=== PATIENT | male | born 1955 | race Caucasian/White ===

== ENCOUNTER 2016-12-31 22:48 | Inpatient (IN) | payer OTHER ==
[~2016-12-31] VITALS: Ht 172.7 cm; Wt 81.6 kg
[2016-12-31 22:53] VITALS: BP 157/87
--- NOTE | 2016-12-31 23:00 | NUR ---
Patient to bed 07.
--- NOTE | 2016-12-31 23:03 | NUR ---
DR. ANTHONY AT BEDSIDE EVALUATING PT.
--- NOTE | 2016-12-31 23:10 | NUR ---
LAB AT BEDSIDE.
[2016-12-31] MEDS ORDERED: MORPHINE SULFATE 2 MG/ML SYR IVP ONE (23:35)
[2016-12-31] MEDS ORDERED: ONDANSETRON 4 MG/2 ML VIAL IVP ONE (23:35)
--- NOTE | 2016-12-31 23:57 | NUR ---
PT TAKEN TO X-RAY.
[2017-01-01] VITALS (7 sets, daily range): BP systolic 109–151; BP diastolic 62–102
--- NOTE | 2017-01-01 00:21 | NUR ---
Patient back from XRAY via wheelchair per tech.
--- NOTE | 2017-01-01 00:32 | NUR ---
DR. ANTHONY NOTIFIED OF PT'S VITAL SIGNS. BP 175/110. PAIN SCALE 10/10, CHEST.
--- NOTE | 2017-01-01 00:38 | NUR ---
DR. ANTHONY REEVALUATING PT AT BEDSIDE.
[2017-01-01] MEDS ORDERED: HYDROmorphone 1 MG/ML AMP IVP ONE ×2 (00:40→01:25)
[2017-01-01] MEDS ORDERED: DILTIAZEM 25 MG/5 ML VIAL IVP ONE (00:45)
[2017-01-01] MEDS ORDERED: ONDANSETRON 4 MG ODT PO ONE (00:45)
[2017-01-01] MEDS ORDERED: NORVASC10 M1 PO (01:02)
[2017-01-01] MEDS ORDERED: ZESTORETIC 12.51 TA2 PO (01:02)
--- NOTE | 2017-01-01 01:05 | NUR ---
DR. ANTHONY AWARE OF PT'S BP. 154/91. DR. ANTHONY SAID TO HOLD OFF CARDIZEM AT THIS TIME. WILL CONTINUE TO MONITOR.
--- NOTE | 2017-01-01 01:12 | NUR ---
PT SIGNED CONSENT FOR CT ABDOMEN/PELVIS WITH CONTRAST.
--- NOTE | 2017-01-01 01:34 | NUR ---
Patient going to CT via wheelchair per tech.
--- NOTE | 2017-01-01 01:50 | NUR ---
Patient back from CT via wheelchair per tech.
--- NOTE | 2017-01-01 02:41 | NUR ---
DR. ANTHONY AT BEDSIDE REEVALUATING PATIENT.
[2017-01-01] MEDS ORDERED: ONDANSETRON 4 MG/2 ML VIAL IVP PRN (02:55)
[2017-01-01] MEDS ORDERED: ACETAMINOPHEN 325 MG TAB PO PRN (02:55)
[2017-01-01] MEDS ORDERED: MORPHINE SULFATE 2 MG/ML SYR IVP PRN (02:55)
[2017-01-01] MEDS ORDERED: HYDROcodone/APAP 7.5/325 MG 1 TAB PO PRN (02:55)
[2017-01-01] MEDS ORDERED: NITROGLYCERIN 0.4 MG TAB SL PRN (02:55)
--- NOTE | 2017-01-01 03:10 | NUR ---
Patient will be admitted to care of DR. JACOBSON. Admited to TELEMETRY UNIT. Belongings list completed. Report GIVEN TO BERNADINE LOPEZ.
--- NOTE | 2017-01-01 03:15 | NUR ---
DR. ANTHONY AWARE PT HAS NOT GIVEN URINE SPECIMEN YET. ENDORSED TO BERNADINE LOPEZ.
--- NOTE | 2017-01-01 03:18 | NUR ---
PT TRANSFERRED TO FLOOR VIA GURNEY ACCOMPANIED BY RN AND EMT, ATTACHED TO TOOL DESIGN CHECKER, ON A GUARDED POSITION.
--- NOTE | 2017-01-01 03:20 | NUR ---
RECEIVED PATIENT FROM ER VIA GURNEY, REPORT GIVEN BY JAREN COLINDRES. AWAKE, ALERT, ORIENTED, FULL CODE. HOOKED TO DINING MANAGER, SINUS RHYTHM. WITH PERIPHERAL IV ON LEFT AC G20 INTACT. INITIAL ASSESSMENT AND HISTORY TAKEN. SKIN INTACT. PATIENT VERBALIZED 3/10 MILD CHEST PAIN, INFORMED OF PRN ORDER OF MORPHINE AND NORCO. PATIENT VERBALIZED NO NEED FOR MEDICATION AT THIS TIME. NO SIGNS OF RESPIRATORY DISTRESS OR DISCOMFORT AT THIS MOMENT. MRSA NARES SWAB SPECIMEN TAKEN AND URINE SPECIMEN COLLECTED AND SENT TO LAB.
--- NOTE | 2017-01-01 05:43 | NUR ---
SLEEPING COMFORTABLY, NO SIGNS OF DISTRESS OR DISCOMFORT AT THIS MOMENT. BED IN LOW POSITION. CALL LIGHT AT BEDSIDE. CLOSE MONITORING.
--- NOTE | 2017-01-01 06:30 | NUR ---
PATIENT BRUSHED HIS TEETH HIMSELF. HE SAID HE WILL WAIT UNTIL HE GETS TRANSFERRED TO THE TELEMETRY ROOM TO GET HIMSELF CLEANED UP AND SHOWER.
--- NOTE | 2017-01-01 07:25 | NUR ---
PATIENT REPORT ENDORSED TO CHANELL COLINDRES. PATIENT PUT ON TELE MONITOR, TRANSFERRED TO TELE WITH CHANELL COLINDRES PER WHEELCHAIR. PATIENT AMBULATES.
--- NOTE | 2017-01-01 07:30 | NUR ---
RECEIVED REPORT FROM BERNADINE LOPEZ. PT IS ON ROOM AIR. PT IS AAOX4. IV TO LEFT AC #20, PATENT AND INTACT. SKIN IS INTACT. SAFETY PRECAUTIONS IN PLACE WITH BED IN LOWEST POSITION AND SIDE RAILS UP X2. CALL LIGHT WITHIN REACH. WILL CONTINUE TO MONITOR.
--- NOTE | 2017-01-01 08:00 | NUR ---
PATIENT HAS BEEN SCREENED AND CATEGORIZED MODERATE NUTRITION RISK. PATIENT WILL BE SEEN WITHIN 3-5 DAYS OF ADMISSION. 01/03/17-01/05/[address]
[2017-01-01] MEDS: CARVEDILOL 3.125 MG TAB PO SCH ×2 (08:36→20:14)
[2017-01-01] MEDS: FAMOTIDINE 20 MG TAB PO SCH (08:36)
[2017-01-01] MEDS: DOCUSATE SODIUM 100 MG GELCAP PO SCH (08:37)
[2017-01-01] MEDS: amLODIPine 5 MG TAB PO SCH (08:37)
[2017-01-01] MEDS: LISINOPRIL 10 MG TAB PO SCH (08:37)
[2017-01-01] MEDS: ATORVASTATIN 20 MG TAB PO SCH (08:37)
--- NOTE | 2017-01-01 08:44 | NUR ---
PT C/O PAIN 8/10 TO CHEST AND ABDOMEN, ACHING AND WITH PRESSURE AND C/O NAUSEA. CHECKED BP: 151/88. ADMINISTERED MEDICATION ORDERED PRN. PT TOLERATED WELL. WILL REASSESS.
--- NOTE | 2017-01-01 08:47 | NUR ---
DR. SUTTON PRESENT AT BEDSIDE.
[2017-01-01] MEDS ORDERED: ASPIRIN 81 MG TAB.CHEW PO SCH (09:00)
--- NOTE | 2017-01-01 09:35 | NUR ---
PRESENT AT BEDSIDE.
--- NOTE | 2017-01-01 10:48 | NUR ---
DR. MAYS IN TO SEE PT. WILL FOLLOW UP ON ORDERS.
[2017-01-01] MEDS: NACL 0.9% 1,000 ML IV SCH ×2 (10:58→23:58)
[2017-01-01] MEDS: HYDROmorphone 1 MG/ML AMP IVP PRN ×3 (11:28→20:14)
--- NOTE | 2017-01-01 11:28 | NUR ---
PT C/O PAIN, 6/10 TO CHEST AND ABD. ACHING AND CONTINUOUS. CHECKED BP: 131/89. ADMINISTERED DILAUDID ORDERED. PT TOLERATED WELL. WILL REASSESS.
--- NOTE | 2017-01-01 12:01 | NUR ---
PT TO STRESS TEST.
--- NOTE | 2017-01-01 12:50 | NUR ---
DR. SARMIENTO IN TO SEE PT. WILL FOLLOW UP ON ORDERS.
--- NOTE | 2017-01-01 14:07 | NUR ---
CHECKED ON PT. RESTING AT THIS TIME, AROUSABLE. CALL LIGHT WITHIN REACH. WILL CONTINUE TO MONITOR.
--- NOTE | 2017-01-01 14:23 | NUR ---
FOLLOWED UP WITH RADIOLOGY REGARDING US GALLBLADDER. INFORMED THAT TECH IS CURRENTLY BUSY WITH OTHER PTS AND WILL COME AFTERWARDS.
--- NOTE | 2017-01-01 14:44 | NUR ---
AND SON PRESENT AT BEDSIDE.
--- NOTE | 2017-01-01 16:26 | NUR ---
CHECKED ON PT. ALL NEEDS MET AT THIS TIME. CALL LIGHT WITHIN REACH.
--- NOTE | 2017-01-01 17:23 | NUR ---
PT C/O PAIN TO CHEST, ACHING AND CONTINUOUS, 04/02. CHECKED BP: 137/84. ADMINISTERED DILAUDID ORDERED PRN. PT TOLERATED WELL. WILL REASSESS.
--- NOTE | 2017-01-01 18:10 | NUR ---
DR. CANTU IN TO SEE PT. WILL FOLLOW UP ON ORDERS.
--- NOTE | 2017-01-01 18:15 | NUR ---
BLOOD PICKED UP FROM LAB AND CHECKED AT BEDSIDE VIA 2 RNS. BASELINE VSS. STARTED BLOOD TRANSFUSION. NO REACTION NOTED AT THIS TIME. WILL CONTINUE TO MONITOR. Addendum: 01/01/17 at 1818 by Alma Delia Dang RN CHARTED ON WRONG PT.
--- NOTE | 2017-01-01 18:45 | NUR ---
CONSENT FOR SURGERY SIGNED AND PLACED IN PT'S CHART. ALL QUESTIONS ANSWERED.
--- NOTE | 2017-01-01 19:30 | NUR ---
ENDORSED CARE TO BERNADINE COLON. PT IN STABLE CONDITION.
--- NOTE | 2017-01-01 19:31 | NUR ---
RECEIVED PT FROM CHANELL COLINDRES PT IS AAOX4 AMBULATORY ON TELEMETRY SR, DENIES ANY PAIN AT THIS TIME, IV ON LEFT AC INFUSING WELL INITIAL ASSESSMENT DONE
--- NOTE | 2017-01-01 22:00 | NUR ---
PT SLEEPING WELL AFTER PAIN MEDIC GIVEN ,ON TELEMETRY SR NOT DISTRESS NOTED
--- NOTE | 2017-01-02 | NUR ---
PT HAS FEVER 101.0 TYLENOL GIVEN ORDER WILL BE MONITOING
[2017-01-02] MEDS: HYDROmorphone 1 MG/ML AMP IVP PRN ×7 (00:40→21:31)
--- NOTE | 2017-01-02 01:00 | NUR ---
TEMP 99.1
--- NOTE | 2017-01-02 03:05 | NUR ---
PT IS NPO AMBULATES TO THE RESTROOM DENIES ANY PAIN AT THIS TIME.
[2017-01-02 04:00] VITALS: BP 96/65
--- NOTE | 2017-01-02 05:33 | NUR ---
SPONGE BATH GIVEN , LINEN CHANGED PT CONSENT READY AND SURGICAL CHECK LIST READY. AND TICKET TO READY
--- NOTE | 2017-01-02 06:36 | NUR ---
PT RESTING ON BED ON TELEMETRY SR NOT DISTRESS NOTED
--- NOTE | 2017-01-02 07:00 | NUR ---
RECEIVED REPORT FROM NIGHT NURSE. PT IS AAOX4, SKIN INTACT, IV TO LEFT AC 20G. NO CHEST PAIN AT THIS TIME. INITIAL ASSESSMENT COMPLETED. REVIEWED PLAN OF CARE WITH PT, PT WILL BE GOING TO OR FOR LAP ANNABELLA, PT VERBALIZED UNDERSTANDING. CALL LIGHT WITHIN REACH.
--- NOTE | 2017-01-02 07:14 | NUR ---
PT LEFT UNIT TO OR IN STABLE CONDITION.
[2017-01-02] MEDS ORDERED: BUPIVACAINE-MPF/EPI 0.25% 30 ML VIAL INJ ONE (07:15)
[2017-01-02] MEDS ORDERED: THROMBIN KIT 20 MU VIAL TP ONE (07:16)
[2017-01-02] MEDS ORDERED: ceFAZolin 1,000 MG VIAL ONE (07:34)
[2017-01-02] MEDS ORDERED: DESFLURANE 240 ML BTL INH ONE (07:39)
[2017-01-02] MEDS ORDERED: SUCCINYLCHOLINE CHLORIDE 200 MG/10 ML VIAL IVP ONE (07:39)
[2017-01-02] MEDS ORDERED: CISATRACURIUM 20 MG/10 ML IV ONE ×2 (07:39→07:53)
[2017-01-02] MEDS ORDERED: DEXAMETHASONE 4 MG/ML VIAL ONE (07:39)
[2017-01-02] MEDS ORDERED: LIDOCAINE 2% 100 MG/5 ML SYR IVP ONE (07:39)
[2017-01-02] MEDS ORDERED: PROPOFOL 200 MG/20 ML VIAL IV ONE (07:39)
[2017-01-02] MEDS ORDERED: ePHEDrine 50 MG/ML VIAL ONE (07:39)
[2017-01-02] MEDS ORDERED: fentaNYL 0.05 MG/ML VIAL ONE (07:53)
[2017-01-02] MEDS ORDERED: ONDANSETRON 4 MG/2 ML VIAL IVP PRN (08:25)
[2017-01-02] MEDS: LISINOPRIL 10 MG TAB PO SCH (09:00)
[2017-01-02] MEDS: amLODIPine 5 MG TAB PO SCH (09:00)
[2017-01-02] MEDS: DOCUSATE SODIUM 100 MG GELCAP PO SCH (09:00)
[2017-01-02] MEDS: CARVEDILOL 3.125 MG TAB PO SCH ×2 (09:00→20:07)
[2017-01-02] MEDS ORDERED: PANTOPRAZOLE 40 MG INJ VIAL IVP SCH (09:00)
[2017-01-02] MEDS: ATORVASTATIN 20 MG TAB PO SCH (09:00)
[2017-01-02] MEDS: FAMOTIDINE 20 MG TAB PO SCH (09:00)
[2017-01-02] MEDS ORDERED: HYDROmorphone PFS 2 MG/ML SYR ONE (10:05)
[2017-01-02] MEDS ORDERED: PIPERACILLIN/TAZOBACTAM 3.375 GM VIAL IV ONE (10:33)
[2017-01-02] MEDS: DEXT 5% / NACL 0.45% 1,000 ML IV SCH ×2 (10:50→19:50)
--- NOTE | 2017-01-02 10:50 | NUR ---
PT RETURNED FROM OR S/P LAP ANNABELLA WITH 5 ABD INCISIONS JOSÉ LUIS . PT IS AAOX4, IV TO LEFT AC 20G INFUSING WELL. VS: TEMP 98.0, BP 111/70, HR 93, PULSE OX 93% ON O2 2L. ALL NEEDS MET. CALL LIGHT WITHIN REACH. WILL CONTINUE TO MONITOR.
--- NOTE | 2017-01-02 11:05 | NUR ---
S/P LAP ANNABELLA VS: TEMP 98.7, BP 112/66, HR 101, PULSE OX 93%.
--- NOTE | 2017-01-02 11:11 | NUR ---
VICK IN PLACE.
--- NOTE | 2017-01-02 11:20 | NUR ---
S/P LAP ANNABELLA VS: TEMP 97.6, BP 103/76, HR 101, PULSE OX 93%
--- NOTE | 2017-01-02 11:35 | NUR ---
S/P LAP ANNABELLA VS: TEMP 97.7, BP 113/70, HR 96, PULSE OX 93
--- NOTE | 2017-01-02 11:50 | NUR ---
PT CURRENTLY WALKING AROUND UNIT. NO S/S OF DISTRESS NOTED.
[2017-01-02 12:00] VITALS: BP 124/73
--- NOTE | 2017-01-02 12:05 | NUR ---
S/P LAP ANNABELLA VS: TEMP 97.6, BP 124/73, HR 96, PULSE OX 92.
[2017-01-02] MEDS: PIPER/TAZO 3.375GM/D5W PREMIX 50 ML IV SCH ×3 (12:20→23:33)
--- NOTE | 2017-01-02 12:25 | NUR ---
DUE MEDICATIONS GIVEN. PT CURRENTLY RESTING IN BED. NO S/S OF DISTRESS NOTED. ALL NEEDS MET. CALL LIGHT WITHIN REACH. WILL CONTINUE TO MONITOR.
--- NOTE | 2017-01-02 12:35 | NUR ---
S/P LAP ANNABELLA VS: TEMP 98.2, BP 123/76, HR 93, PULSE OX 94%. ALL NEEDS MET. CALL LIGHT WITHIN REACH. WILL CONTINUE TO MONITOR.
[2017-01-02] MEDS ORDERED: CHLORHEXADINE GLUC 2% CLOTH TP SCH (13:30)
[2017-01-02] MEDS: MUPIROCIN 2% OINT 22 GM TUBE TP SCH ×2 (13:41→20:08)
--- NOTE | 2017-01-02 14:23 | NUR ---
PT CURRENTLY SLEEPING. NO S/ OF DISTRESS NOTED. CALL LIGHT WITHIN REACH. WILL CONTINUE TO MONITOR.
[2017-01-02] MEDS ORDERED: SIMETHICONE 80 MG TAB.CHEW PO PRN (15:25)
[2017-01-02] MEDS: HYDROcodone/APAP 5/325 MG 1 TAB TAB PO PRN ×2 (15:29→20:07)
[2017-01-02 16:00] VITALS: BP 126/84
--- NOTE | 2017-01-02 16:05 | NUR ---
PT CURRENTLY RESTING IN BED. NO S/S OF DISTRESS NOTED. ALL NEEDS MET. CALL LIGHT WITHIN REACH. WILL CONTINUE TO MONITOR.
--- NOTE | 2017-01-02 19:25 | NUR ---
ENDORSED PLAN OF CARE TO NIGHT NURSE, PT IN STABLE CONDITION
--- NOTE | 2017-01-02 19:28 | NUR ---
RECEIVED PT IN STABLE CONDITION FROM BERNADINE MCNULTY. NO SOB, NO SIGNS OF DISTRESS. PT IS AOX4, AMBULATORY. IV TO LT AC 20G PATENT, ASYMPTOMATIC, INTACT, SALINE LOCKED. PT REFUSING FLUIDS AND SCDS. VS STABLE ON ROOM AIR. PT S/P LAP ANNABELLA TODAY WITH 5 INCISIONS TO ABDOMEN JOSÉ LUIS SEALED WITH GLUE, NO S/S INFECTION OR DRAINAGE NOTED. PT C/O ABD PAIN AND BURNING WITH URINATION SINCE NICANOR WAS DC, WILL MEDICATE FOR PAIN PER MD ORDER. PT TO BE NPO AFTER MIDNIGHT TONIGHT FOR EGD TOMORROW, PT VERBALIZED UNDERSTANDING. PLAN OF CARE DISCUSSED WITH PT. SAFETY MEASURES IN PLACE. CALL LIGHT WITHIN REACH. WILL CONTINUE TO MONITOR.
--- NOTE | 2017-01-02 20:08 | NUR ---
PT TOLERATED DUE MEDS AND PAIN MEDICATION WELL. NO SOB, NO SIGNS OF DISTRESS. IV SITE ASYMPTOMATIC, INTACT, SALINE LOCKED. SAFETY MEASURES IN PLACE. CALL LIGHT WITHIN REACH. WILL CONTINUE TO MONITOR.
--- NOTE | 2017-01-02 21:31 | NUR ---
PT C/O PAIN IN ABD AND PAIN WITH BURNING UPON URINATION. MEDICATED PT FOR PAIN PER MD ORDER. PT TOLERATED WELL. NO SOB, NO SIGNS OF DISTRESS. IV SITE ASYMPTOMATIC, INTACT, SALINE LOCKED. SAFETY MEASURES IN PLACE. CALL LIGHT WITHIN REACH. WILL CONTINUE TO MONITOR.
--- NOTE | 2017-01-02 22:38 | NUR ---
PT ASLEEP IN BED. NO SOB, NO SIGNS OF DISTRESS. IV SITE ASYMPTOMATIC, INTACT, SALINE LOCKED. SAFETY MEASURES IN PLACE. CALL LIGHT WITHIN REACH. WILL CONTINUE TO MONITOR.
--- NOTE | 2017-01-02 22:46 | NUR ---
CALL FROM MD CANTU REGARDING PT STATUS. GAVE MD REPORT ON PT STATUS.
[2017-01-03] VITALS: BP 116/71
--- NOTE | 2017-01-03 00:10 | NUR ---
VS STABLE. PT DENIES PAIN AT THIS TIME. NO SOB, NO SIGNS OF DISTRESS. IV SITE ASYMPTOMATIC, INTACT, PATENT, IVPB RUNNING. PLAN OF CARE DISCUSSED WITH PT. SAFETY MEASURES IN PLACE. CALL LIGHT WITHIN REACH. WILL CONTINUE TO MONITOR.
[2017-01-03] MEDS: HYDROcodone/APAP 5/325 MG 1 TAB TAB PO PRN ×3 (03:13→12:56)
--- NOTE | 2017-01-03 03:13 | NUR ---
PT C/O PAIN IN ABDOMEN AND BURNING WITH URINATION AFTER GETTING UP TO GO TO THE BATHROOM. PT REQUESTED NORCO, MEDICATED PT FOR PAIN PER MD ORDER. NO SOB, NO SIGNS OF DISTRESS. IV SITE ASYMPTOMATIC, INTACT, SALINE LOCKED. PLAN OF CARE DISCUSSED WITH PT. SAFETY MEASURES IN PLACE. CALL LIGHT WITHIN REACH. WILL CONTINUE TO MONITOR.
[2017-01-03] MEDS: PIPER/TAZO 3.375GM/D5W PREMIX 50 ML IV SCH (05:20)
--- NOTE | 2017-01-03 05:20 | NUR ---
STARTED ZOSYN IVPB. NO SOB, NO SIGNS OF DISTRESS. PT STATES HIS PAIN IS TOLERABLE AT THIS TIME. IV SITE ASYMPTOMATIC, INTACT, PATENT, IVPB RUNNING. PLAN OF CARE DISCUSSED WITH PT. SAFETY MEASURES IN PLACE. CALL LIGHT WITHIN REACH. WILL CONTINUE TO MONITOR.
[2017-01-03] MEDS: DEXT 5% / NACL 0.45% 1,000 ML IV SCH (05:50)
--- NOTE | 2017-01-03 07:27 | NUR ---
ENDORSED PT IN STABLE CONDITION TO BERNADINE WELLINGTON. ALL NEEDS HAVE BEEN MET AT THIS TIME.
[2017-01-03 08:00] VITALS: BP 120/79
[2017-01-03] MEDS ORDERED: NORCO 10/325 MG1 TAB PO (11:03)
[2017-01-03] MEDS ORDERED: BACTROBAN 2%20 MG/GM TP (11:04)
[2017-01-03] MEDS ORDERED: APLICARE ANTIS118 M2 TP (11:04)
[2017-01-03] MEDS ORDERED: fentaNYL 0.05 MG/ML VIAL ONE (11:18)
[2017-01-03] MEDS ORDERED: diphenhydrAMINE 50 MG/ML VIAL ONE (11:18)
[2017-01-03] MEDS ORDERED: MIDAZOLAM 2 MG/2 ML VIAL ONE (11:18)
--- NOTE | 2017-01-03 11:35 | NUR ---
PT WAS BROUGHT TO ER. TICKET TO RIDE IN THE CHART. PT WAS ALERT ORIENTED. X4. Addendum: 01/03/17 at 1626 by Ma. Jodie Arvizu RN AMMEND:PT WAS BROUGHT TO OR FOR EGD
--- NOTE | 2017-01-03 12:00 | NUR ---
RECEIVED PT BACK FROM THE OR. PT IS ALERT AND ORIENTED. GIVEN ICE CHIPS AND GELLO. GIVEN LUNCH TRAY CARDIAC TRAY REFUSED FOR ANY MEDICATION TO BE GIVEN AT THIS TIEM. REFUSED ZOSYN IV ATB.VERBAL MD ORDERED THAT PT MAY DC PT. DR PAINTER TO PLACE ORDER INTHE CHART.
[2017-01-03] MEDS ORDERED: PANTOPRAZOLE 40 MG INJ VIAL IVP SCH (12:33)
[2017-01-03 13:20] VITALS: BP 128/68
--- NOTE | 2017-01-03 13:30 | NUR ---
REMOVED IV INTACT APPLIED PRESSURE. GIVEN DISCHARGE INSTRUCTIONS,PAGED SEVERAL TIMES, NO REPLY. PT WANTED TO LEAVE, AT THE BEDSIDE. GIVEN PRESCRIPTION MADE COPY PLACE IN THE CHART.
--- NOTE | 2017-01-03 14:45 | NUR ---
WHEELED PATIENT OUT WITH THE FAMILY. GIVEN PRESCRIPTION.
[2017-01-03] MEDS ORDERED: MIDAZOLAM 2 MG/2 ML VIAL IVP ONE (15:05)
[2017-01-03] MEDS ORDERED: fentaNYL 0.05 MG/ML VIAL IVP ONE (15:05)
== END 2017-01-03 15:00 | disposition home or self-care (01) | DRG 417 ==
LOC: MED 22:48 → MIC 01-01 02:58 → MTU 01-01 07:10
PROVIDERS: ADMIT Student in an Organized Health Care Education/Training Program; ATTEND Student in an Organized Health Care Education/Training Program
PROC: 0FT44ZZ Resection of Gallbladder, Percutaneous Endoscopic Approach (ICD-10-PCS; principal; 2017-01-02 08:00)
PROC: 0D738DZ Dilation of Lower Esophagus with Intraluminal Device, Via Natural or Artificial Opening Endoscopic (ICD-10-PCS; 2017-01-03)
PROC: 0DB40ZZ Excision of Esophagogastric Junction, Open Approach (ICD-10-PCS; 2017-01-03)
PROC: 0DB58ZX Excision of Esophagus, Via Natural or Artificial Opening Endoscopic, Diagnostic (ICD-10-PCS; 2017-01-03)
PROC: 0DB68ZX Excision of Stomach, Via Natural or Artificial Opening Endoscopic, Diagnostic (ICD-10-PCS; 2017-01-03)
DX: K80.00 Calculus of gallbladder with acute cholecystitis without obstruction (principal); K22.6 Gastro-esophageal laceration-hemorrhage syndrome; D13.1 Benign neoplasm of stomach; K20.0 Eosinophilic esophagitis; K22.4 Dyskinesia of esophagus; K57.90 Diverticulosis of intestine, part unspecified, without perforation or abscess without bleeding; R00.0 Tachycardia, unspecified; E02 Subclinical iodine-deficiency hypothyroidism; N18.9 Chronic kidney disease, unspecified; I12.9 Hypertensive chronic kidney disease with stage 1 through stage 4 chronic kidney disease, or unspecified chronic kidney disease; D69.6 Thrombocytopenia, unspecified; G47.33 Obstructive sleep apnea (adult) (pediatric); E11.649 Type 2 diabetes mellitus with hypoglycemia without coma; I25.10 Atherosclerotic heart disease of native coronary artery without angina pectoris; K82.8 Other specified diseases of gallbladder; K21.9 Gastro-esophageal reflux disease without esophagitis; F41.9 Anxiety disorder, unspecified; K44.9 Diaphragmatic hernia without obstruction or gangrene; Z73.3 Stress, not elsewhere classified